=== PATIENT | female | born 1970 | race Caucasian/White ===

== ENCOUNTER 2017-07-06 11:46 | Day surgery (SDC) | payer OTHER ==
[~2017-07-06 11:46] MED LIST: ALENDRONATE SOD70 MG PO; AMITIZA24 MCG PO; AZULFIDINE500 MG PO; BAYER CHEWABLE81 MG PO; CARAFATE1 G PO; COPAXONE INJ20 MG/ML; DURAGESIC1 PATCH .2 TRANSDERM; FOLIC ACID PO; IMITREX NS; KLONOPIN0.5 MG PO; METHOTREXATE2.5 MG; NEURONTIN 300300 MG PO; NUEDEXTA 20-101 EACH PO; PERCOCET 10/3251 TA1 PO; PHENERGAN; VITAMIN B-1250 MCG PO; [UNRECOGNIZED DRUG - OTHER]
[2017-07-06 13:29] LABS: BASOPHILS 0.3 % (0-2); EOSINOPHILS 0.7 % (0-7); HEMATOCRIT 37.5 % (36.0-48.0); HEMOGLOBIN 12.4 g/dL (12-16); IMMATURE GRANULOCYTES 0.1 % (0-5); LYMPHOCYTES 25.9 % (15-50); MCH 29.7 pg (26.0-34.0); MCHC 33.1 g/dL (31.0-37.0); MCV 89.9 fL (80.0-100.0); MEAN PLATELET VOLUME 8.7 fL (7.4-10.4); MONOCYTES 8.4 % (2-11); NEUTROPHILS 64.6 % (40-80); PLATELET COUNT 419 10x3/uL (130-400); RBC 4.17 10x6/uL (4.00-5.40); RDW 13.7 % (11.5-14.5); WBC 8.7 10x3/uL (4.8-10.8)
[2017-07-06] MEDS ORDERED: VITAMIN D250000 UNIT PO (13:40)
[2017-07-06] MEDS ORDERED: ZOFRAN ODT4 MG/UDTAB PO (13:41)
[2017-07-06 13:44] LABS: CALC OSMOLALITY 271 mosm/kg (275-300); CALCIUM 9.2 mg/dL (8.5-10.1); CHLORIDE - SERUM 101 mmol/L (98-107); CREATININE - SERUM 0.5 mg/dL (0.6-1.3); GLUCOSE 97 mg/dL (74-106); POTASSIUM - SERUM 3.9 mmol/L (3.5-5.1); SODIUM 137 mmol/L (136-145); UREA NITROGEN 6 mg/dL (7-18); eGFR NON AFRICAN AMERICAN > 90 mL/min (90-120)
[2017-07-06 13:48] VITALS: BP 126/74; BMI 47.3
--- NOTE | 2017-07-06 15:26 | NUR ---
1525 DISCHARGE INSTRUCTIONS COMPLETE. PRESCRIPTION FOR NEXIUM GIVEN. PT HAS NO QUESTIONS OR CONCERNS. ESCORTED OUT BY VOLUNTEER.
--- NOTE | 2017-07-17 16:01 | OP ---
PATIENT NAME: MAYRA ORNELAS MEDICAL RECORD: [id number] :68 LOCATION:D[facility] ADMISSION DATE: SURGEON: TACO FREDERICK MD DATE OF OPERATION: 07/06/2017 PROCEDURE: Colonoscopy with ileoscopy and biopsy. REFERRING PHYSICIAN: Luciano Flower MD NEUROLOGIST: Farhana Maldonado MD ([facility]). HISTORY OF PRESENT ILLNESS: Ms. Ornelas is a delightful 47-year-old woman with a history of pyoderma gangrenosum and colon disease involving both the terminal ileum and colon. Her last colonoscopy was 07/22/2015 with finding showing very minimal narrowing of the terminal ileum with some mild erythema, few small ulcers in the cecum, and descending and sigmoid polyps (ileal biopsies). The terminal ileum showed no significant pathologic abnormality. Cecal biopsy showed chronic inflammation, [id number], and the polyps were hyperplastic in nature. She presents for outpatient surveillance colonoscopy. PREMEDICATIONS: Total IV anesthesia (propofol 300 mg), history of multiple sclerosis and Crohn's disease. INSTRUMENT: Olympus video colonoscope. PROCEDURE AND FINDINGS: After receiving informed consent, Ms. Ornelas was placed in left lateral decubitus position and sedated as per anesthesia. After achieving an adequate level of sedation, digital rectal exam was performed that showed no external hemorrhoidal tags, fissures or fistulas, normal sphincter tone, no palpable rectal masses. The colonoscope was introduced per rectally and advanced to the cecum without difficulty. The cecum, IC valve, and appendiceal orifice were identified. There was mild patchy erythema around the appendiceal orifice and biopsies were taken of the cecum. Terminal ileum was intubated and the distal small bowel mucosa was without erythema or ulcers. As the colonoscope was withdrawn, careful inspection was made of the martinez of the colon. Overall, the mucosa had normal vascular and fold pattern, but the prep was poor to fair. Multiple lavages were performed. There are no signs of bleeding or blood in the colon. There were no ulcers noted. Retroflexion in rectum showed a few small tags. Withdrawal time was 10 minutes. Ms. Ornelas tolerated the procedure well, no immediate complications. ASSESSMENT: 1. Minimal erythema in the cecum, status post biopsy. 2. Otherwise normal colonoscopy with ileoscopy. 3. History of Crohn's disease involving both the small bowel and colon. RECOMMENDATIONS: 1. Follow up histopathology. 2. High fiber diet. Her medicines; continue sulfasalazine 500 mg 1 p.o. 3 times a day (additionally, she is on methotrexate 2.5 mg). 3. Resume aspirin. 4. Surveillance colonoscopy in 2 years. TRANSINT:[id number] Voice Confirmation ID: [id number] DOCUMENT ID: [id number] OPERATIVE REPORT [id number] MAYRA ORNELAS TERRI MD at 1601 CC: FARHANA MALDONADO MD and LUCIANO FLOWER MD [id number] DICTATION DATE: 07/06/17 1438 [facility]: 07/06/171941 [facility] 07/06/17 [id number] [place] [address]
== END 2017-07-06 15:27 | disposition home or self-care (01) ==
LOC: D.OPS 11:46
PROVIDERS: Internal Medicine Gastroenterology
DX: K52.9 Noninfective gastroenteritis and colitis, unspecified (principal); K50.10 Crohn's disease of large intestine without complications; Z01.812 Encounter for preprocedural laboratory examination

== ENCOUNTER 2018-12-27 07:29 | Day surgery (SDC) | payer MEDICARE, OTHER ==
[~2018-12-27] VITALS: Ht 154.9 cm; Wt 83.6 kg
[~2018-12-27 07:29] MED LIST changes: +GABAPENTIN100 MG PO; -NEURONTIN 300300 MG PO; +VITAMIN D250000 UNIT PO; +ZOFRAN ODT4 MG/UDTAB PO
[2018-12-27 08:53] LABS: HEMATOCRIT 42.3 % (36.0-48.0); HEMOGLOBIN 14.1 g/dL (12-16); MCHC 33.3 g/dL (31.0-37.0); MCV 86.9 fL (80.0-100.0); MEAN PLATELET VOLUME 8.7 fL (7.4-10.4); RBC 4.87 10x6/uL (4.00-5.40); RDW 15.2 % (11.5-14.5); WBC 7.1 10x3/uL (4.8-10.8)
[2018-12-27] MEDS ORDERED: FLUTICASONE PRO16 GM NASAL (09:31)
[2018-12-27] MEDS ORDERED: ESTRACE 0.0142.5 GM VG (09:32)
[2018-12-27] MEDS ORDERED: NEXIUM20 MG PO (09:33)
[2018-12-27] MEDS ORDERED: PROVIGIL200 MG (09:34)
[2018-12-27] MEDS ORDERED: EPIPEN 2-P0.3 MG/0.3 IM (09:34)
[2018-12-27] MEDS ORDERED: PHENERGAN25 MG RC (09:36)
[2018-12-27] MEDS ORDERED: BISACODYL5 MG PO (09:38)
[2018-12-27] MEDS ORDERED: IMITREX NS (09:39)
[2018-12-27 09:53] VITALS: BP 119/87; Ht 154.9 cm; Wt 83.6 kg
--- NOTE | 2018-12-27 12:23 | OP ---
PATIENT NAME: MAYRA ORNELAS MEDICAL RECORD: [id number] :68 LOCATION:[facility] ADMISSION DATE: SURGEON: TACO FREDERICK MD DATE OF OPERATION: 12/27/2018 PROCEDURE: EGD with biopsy and esophageal balloon dilatation. INDICATIONS: Ms. Ornelas is a 48-year-old woman with a history of multiple sclerosis, Crohn's disease with a history of pyoderma gangrenosum, who presents for further evaluation of nausea, vomiting, upper abdominal pain, dysphagia, and diarrhea. She had a hospitalization at [facility] this month for evaluation of imbalance, right leg weakness and pain, nausea and vomiting. 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 CT of the head showed previously seen findings of multiple sclerosis as seen with periventricular and subcortical subtle hypodensities on the CT scan; and there were no new sizable hypodensities seen and stable ventricular size was noted. MRI of the brain was recommended. Her last colonoscopy was 07/06/2017, which showed minimal erythema in the cecum, normal appearing terminal ileum (cecal biopsy showed mild chronic inflammation with focal petechial recent hemorrhage, nonspecific). Her last EGD was 11/13/2013 with findings showing a small sliding type hiatal hernia, mild gastritis (gastric biopsies were negative for H. pylori and duodenal biopsies showed chronic minimal duodenitis with no mucosal villous atrophy). She presents for outpatient EGD. PREMEDICATIONS: Total IV anesthesia (ASA 3, multiple sclerosis). INSTRUMENT: Olympus video gastroscope. PROCEDURE AND FINDINGS: After receiving informed consent, Ms. Ornelas's posterior pharynx was anesthetized with Cetacaine spray, placed in left lateral decubitus position and sedated as per anesthesia. After achieving adequate sedation, gastroscope was introduced per orally and advanced to the duodenum without difficulty. The esophageal mucosa was without erythema, ulcers, strictures, or masses. There was a partial nonobstructive Schatzki's ring at the GE junction through which the gastroscope passed easily. A small sliding type hiatal hernia was noted. There was a mild streaky erythema in the antrum and antral biopsies were obtained of the stomach and antral biopsies were obtained to rule out Helicobacter pylori. No erythema or lesions were seen in the body, cardia and fundus of the stomach. During the procedure, a few waves of gastric peristaltic activity were noted. Pylorus was patent and competent. Duodenal mucosa was without erythema or ulcers, appeared normal through the third portion. Biopsies were taken from the second portion of duodenum and the gastroscope was withdrawn to the stomach. Esophageal balloon dilator was then introduced through the gastroscope, positioned midway across the distal esophagus, insufflated to a 60-Kinyarwanda size, held in place on the appropriate PSI for 60 seconds, then deflated with good results. Balloon was withdrawn and then biopsies were taken from the distal third of the esophagus to evaluate for microscopic reflux changes and then from the middle third of the esophagus to exclude eosinophilic esophagitis. Gastroscope was then withdrawn. Ms. Ornelas tolerated the procedure well, no immediate complications. OPERATIVE REPORT [id number] JOHNSONMAYRA ASSESSMENT: 1. Partial Schatzki's ring status post esophageal balloon dilatation. 2. Small sliding type hiatal hernia. 3. Mild gastritis. 4. Symptoms of nausea, vomiting, dysphagia, and diarrhea. 5. History of Crohn disease of the large intestine. RECOMMENDATIONS: 1. Follow up histopathology. 2. Soft diet today. 3. Nexium 40 mg p.o. b.i.d. 4. Gastric emptying scan. 5. Upper gastrointestinal series with small-bowel follow through. 6. Colonoscopy next week as scheduled. TRANSINT:[id number] Voice Confirmation ID: [id number] DOCUMENT ID: [id number] cc: Jamir Cartagena, KATHY [phone] TACO FREDERICK MD at 1223 CC: LUCIANO CHUA MD and JAMIR CARTAGENA APRN [id number] DICTATION DATE: 12/27/18 1132 [facility] DOCTOR: 12/27/18 1150 [facility] [address] [place] [address]
--- NOTE | 2018-12-27 13:00 | NUR ---
LEFT ARM PIV DC'D WITH TIP INTACT. PATIENT DRESSING IN PERSONAL CLOTHING
--- NOTE | 2018-12-27 13:15 | NUR ---
DISCHARGE INSTRUCTIONS REVIEWED WITH PATIENT, ASSIST PATIENT TO TRANSFER TO WHEELCHAIR FOR TRANSPORT TO FRIEND'S PRIVATE VEHICLE. PATIENT REPORTS THAT SHE DOES NOT AMBULATE DUE TO MS, USES WHEELCHAIR
== END 2018-12-27 13:15 | disposition home or self-care (01) ==
LOC: D.OPS 07:29
PROVIDERS: ATTEND Internal Medicine Gastroenterology
DX: K22.2 Esophageal obstruction (principal); K44.9 Diaphragmatic hernia without obstruction or gangrene; K29.50 Unspecified chronic gastritis without bleeding; K21.0 Gastro-esophageal reflux disease with esophagitis; K50.90 Crohn's disease, unspecified, without complications; G35 Multiple sclerosis; Z01.812 Encounter for preprocedural laboratory examination

== ENCOUNTER → 2019-01-09 11:15 | Outpatient (CLI) | payer MEDICARE, OTHER ==
[~2019-01-09 11:15] MED LIST changes: +ALBUTEROL SULF8.5 GM INH; +BISACODYL5 MG PO; +EPIPEN 2-P0.3 MG/0.3 IM; +ESTRACE 0.0142.5 GM VG; +FLUTICASONE PRO16 GM NASAL; +NEXIUM20 MG PO; +PHENERGAN25 MG RC; +PROVIGIL200 MG
== END | disposition home or self-care (01) ==
LOC: D.RAD 11:15
DX: G35 Multiple sclerosis (principal); R10.13 Epigastric pain; K50.90 Crohn's disease, unspecified, without complications; R11.2 Nausea with vomiting, unspecified

== ENCOUNTER 2019-01-11 09:26 | Day surgery (SDC) | payer MEDICARE, OTHER ==
[~2019-01-11] VITALS: Ht 154.9 cm; Wt 91.4 kg
[~2019-01-11 09:26] MED LIST changes: -ALBUTEROL SULF8.5 GM INH
[2019-01-11 10:03] LABS: HEMATOCRIT 39.2 % (36.0-48.0); MCH 28.4 pg (26.0-34.0); MCHC 33.2 g/dL (31.0-37.0); MCV 85.6 fL (80.0-100.0); MEAN PLATELET VOLUME 8.6 fL (7.4-10.4); RBC 4.58 10x6/uL (4.00-5.40); RDW 14.7 % (11.5-14.5); WBC 6.7 10x3/uL (4.8-10.8)
[2019-01-11 10:13] LABS: CALC OSMOLALITY 273 mosm/kg (275-300); CALCIUM 8.8 mg/dL (8.5-10.1); CARBON DIOXIDE 29.3 mmol/L (21.0-32.0); CHLORIDE - SERUM 101 mmol/L (98-107); CREATININE - SERUM 0.6 mg/dL (0.6-1.3); GLUCOSE 105 mg/dL (74-106); POTASSIUM - SERUM 3.6 mmol/L (3.5-5.1); SODIUM 138 mmol/L (136-145); UREA NITROGEN 6 mg/dL (7-18); eGFR NON AFRICAN AMERICAN > 90 mL/min (90-120)
[2019-01-11 10:28] LABS: HCG SERUM NEGATIVE (NEGATIVE)
[2019-01-11 11:04] VITALS: BP 143/99; Ht 154.9 cm; Wt 91.4 kg
--- NOTE | 2019-01-15 10:17 | OP ---
PATIENT NAME: MAYRA ORNELAS MEDICAL RECORD: [id number] :68 LOCATION:[facility] ADMISSION DATE: SURGEON: TACO FREDERICK MD DATE OF OPERATION: 01/11/2019 PROCEDURE: Colonoscopy with biopsy. INDICATIONS: Ms. Ornelas is a pleasant 48-year-old woman with a history of multiple sclerosis and Crohn's disease. She has had symptoms of nausea, vomiting, abdominal pain, slow gastrointestinal transit. She had an EGD on 12/27/2018 with esophageal balloon dilatation (findings of a partial Schatzki's ring dilated to a 60-Portuguese size) small sliding type hiatal hernia, mild gastritis. Gastric biopsies were negative for Helicobacter pylori. Duodenal biopsies showed no microorganisms ova or parasites or any significant histopathologic abnormality. Esophageal biopsy showed minimal chronic esophagitis consistent with reflux type injury. She had a followup upper GI small bowel series, 01/09/2019, that was grossly unremarkable, upper GI Series with evaluation limited due to the patient's inability to position upright; slow transit of contrast through the small bowel with no contrast observed in the colon by 3 hours and 45 minutes. There was no significant luminal narrowing or dilatation seen in the visualized small bowel loops. She presents today for outpatient colonoscopy. PREMEDICATIONS: Total IV anesthesia, propofol 300 mg. INSTRUMENT: Olympus video colonoscope, pediatric. PROCEDURE AND FINDINGS: After receiving informed consent, Ms. Ornelas was placed in left lateral decubitus position and sedated as per anesthesia. After achieving an adequate level of sedation, digital rectal exam was performed that showed no external hemorrhoidal tags, fissures or fistulas, normal sphincter tone, no palpable rectal masses. The colonoscope was introduced per rectally and advanced to the cecum without difficulty. The cecum, IC valve, and appendiceal orifice were identified and appeared normal. The terminal ileum was intubated and the distal small bowel mucosa was without erythema or ulcers. Biopsies were taken from the terminal ileum. As the colonoscope was withdrawn, careful inspection was made of the martinez of the colon. There was no retained barium seen in the terminal ileum; however, there was retained barium seen in the descending and sigmoid colon. Multiple lavages were performed. Overall, the colonic mucosa had normal vascular and fold pattern. There are no inflammatory changes or ulcers observed in the colon. Random biopsies were taken from the ascending, transverse, descending sigmoid colon and rectum. A few scattered diverticula were seen in the sigmoid colon. Retroflexion in rectum showed minimal internal hemorrhoids with hemorrhoidal tags. Ms. Ornelas tolerated the procedure well, no immediate complications. ASSESSMENT: 1. Normal appearing terminal ileum. 2. Mild sigmoid diverticulosis. 3. Normal appearing colonic mucosa status post random biopsies. 4. Mild internal hemorrhoids. 5. History of Crohn's disease appears to be quiescent. 6. Slow GI transit. 7. History of multiple sclerosis. OPERATIVE REPORT [id number] MAYRA ORNELAS RECOMMENDATIONS: 1. Amitiza 8 mcg 1-2 p.o. before meals daily b.i.d. to keep daily bowel movements. 2. Anusol-HC suppositories 1 per rectum b.i.d. for 14 days. 3. Surveillance colonoscopy in 2 years. TRANSINT:[id number] Voice Confirmation ID: [id number] DOCUMENT ID: [id number] TACO FREDERICK MD at 1017 CC: FARHANA MALDONADO MD and LUCIANO CHUA MD [id number] DICTATION DATE: 01/11/19 1433 [facility]: 01/11/[address] [facility] 01/11/19 [facility] [address] [place] [address]
== END 2019-01-11 15:10 | disposition home or self-care (01) ==
LOC: D.OPS 09:26
PROVIDERS: Anesthesiology; ATTEND Internal Medicine Gastroenterology
DX: K57.30 Diverticulosis of large intestine without perforation or abscess without bleeding (principal); K64.8 Other hemorrhoids; K64.4 Residual hemorrhoidal skin tags; K52.9 Noninfective gastroenteritis and colitis, unspecified; G35 Multiple sclerosis; K50.90 Crohn's disease, unspecified, without complications; Z01.812 Encounter for preprocedural laboratory examination

== ENCOUNTER 2019-06-15 10:41 | Emergency (ER) | payer MEDICARE, OTHER ==
[~2019-06-15] VITALS: Ht 154.9 cm; Wt 80.9 kg
[2019-06-15 10:51] VITALS: Ht 154.9 cm; Wt 80.9 kg
[2019-06-15] MEDS ORDERED: ALBUTEROL SULF8.5 GM INH (10:55)
[2019-06-15 11:26] LABS: BASOPHILS 0.4 % (0-2); EOSINOPHILS 0.5 % (0-7); HEMATOCRIT 37.7 % (36.0-48.0); HEMOGLOBIN 12.8 g/dL (12-16); IMMATURE GRANULOCYTES 0.2 % (0-5); LYMPHOCYTES 18.8 % (15-50); MCH 28.6 pg (26.0-34.0); MCV 84.2 fL (80.0-100.0); MEAN PLATELET VOLUME 8.8 fL (7.4-10.4); MONOCYTES 7.3 % (2-11); NEUTROPHILS 72.8 % (40-80); PLATELET COUNT 421 10x3/uL (130-400); RBC 4.48 10x6/uL (4.00-5.40); RDW 14.5 % (11.5-14.5); WBC 9.6 10x3/uL (4.8-10.8)
[2019-06-15 11:37] LABS: APTT 26.5 SECONDS (22.8-39.4); INR 1.03 (0.85-1.17)
[2019-06-15 11:43] LABS: ALBUMIN 3.3 g/dL (3.4-5.0); ALKALINE PHOSPHATASE 115 U/L (46-116); ALT (SGPT) 11 U/L (10-68); BILIRUBIN - TOTAL 0.55 mg/dL (0.2-1.3); CALC OSMOLALITY 267 mosm/kg (275-300); CALCIUM 8.7 mg/dL (8.5-10.1); CARBON DIOXIDE 26.4 mmol/L (21.0-32.0); CHLORIDE - SERUM 101 mmol/L (98-107); CREATININE - SERUM 0.5 mg/dL (0.6-1.3); GLUCOSE 112 mg/dL (74-106); POTASSIUM - SERUM 5.1 mmol/L (3.5-5.1); PROTEIN - SERUM 8.2 g/dL (6.4-8.2); SODIUM 135 mmol/L (136-145); UREA NITROGEN 5 mg/dL (7-18); eGFR NON AFRICAN AMERICAN > 90 mL/min (90-120)
[2019-06-15 11:56] LABS: CKMB 0.8 U/L (0.0-3.6); CREATINE KINASE 133 UL (21-215); THYROID STIMULATING HORMONE 0.47 uIU/mL (0.36-3.74)
[2019-06-15 12:01] LABS: TROPONIN-I < 0.017 ng/mL (0.000-0.060)
[2019-06-15 12:44] VITALS: BP 152/90
== END 2019-06-15 12:44 | disposition home or self-care (01) ==
LOC: D.ER 10:41
PROVIDERS: Emergency Medicine
DX: R51 Headache (principal); G35 Multiple sclerosis